=== PATIENT | female | born 1955 | race Caucasian/White ===

== ENCOUNTER 2016-08-18 07:02 | Inpatient (IN) | payer OTHER ==
[~2016-08-18] VITALS: Ht 172.7 cm; Wt 74.6 kg
[2016-08-18 07:04] VITALS: BP 133/84; PULSE 100; RESP 20; TEMP 97.9; O2SAT 97
[2016-08-18 08:00] VITALS: BP 143/78; PULSE 102; RESP 16; O2SAT 99
--- NOTE | 2016-08-18 08:06 | PD ---
HPI Chief Complaint: Abdominal Pain Time Seen by Provider: 07:58 Travel History International Travel<30 days: No Contact w/Intl Traveler<30days: No Traveled to known affect area: No History of Present Illness HPI 61yo F with PMH of depression presents to the ED with c/o RLQ abdominal pain since last night. States it is achy and then sharp when she moves. Pain is intermittent, radiating. Associated with nausea and NBNB vomiting. +Hematuria today. Has history of kidney infections before. Denies any fever, chest pain, sob, dysuria, vaginal bleeding or discharge. PFSH Past Medical History Hx Anticoagulant Therapy: Yes (asa) Cardiovascular Problems: Yes (htn) Cerebrovascular Accident: Yes Tetanus Vaccination: > 5 Years Menopausal: Yes : 9 Para: 7 Past Surgical History Other Surgery: Yes (COSMETIC) Social History Alcohol Use: Yes Tobacco Use: Yes (VAPOR) Substance Use: No Allergies-Medications (Allergen,Severity, Reaction): Coded Allergies: No Known Allergies (Unverified , 08/18/16) Reported Meds & Prescriptions Reported Meds & Active Scripts Active Reported Aspirin Low Dose (Aspirin) 81 Mg Chew 81 Mg CHEW DAILY Vitamin E Water Soluble (Vitamin E) 1,000 Unit Cap 1,000 Units PO DAILY Paxil (Paroxetine HCl) 10 Mg Tab 20 Mg PO DAILY Review of Systems Except as stated in HPI: all other systems reviewed are Neg Physical Exam Narrative GENERAL: 61yo F not in distress. SKIN: Focused skin assessment warm/dry. HEAD: Atraumatic. Normocephalic. EYES: Pupils equal and round. No scleral icterus. No injection or drainage. ENT: No nasal bleeding or discharge. Mucous membranes pink and moist. NECK: Trachea midline. No JVD. CARDIOVASCULAR: Regular rate and rhythm. No murmur appreciated. RESPIRATORY: No accessory muscle use. Clear to auscultation. Breath sounds equal bilaterally. GASTROINTESTINAL: Abdomen soft, +TTP RLQ > RUQ. Positive rovsings sign. Nondistended. BACK: No CVA tenderness bilaterally. MUSCULOSKELETAL: No obvious deformities. No clubbing. No cyanosis. No edema. NEUROLOGICAL: Awake and alert. No obvious cranial nerve deficits. Motor grossly within normal limits. Normal speech. PSYCHIATRIC: Appropriate mood and affect; insight and judgment normal. Data Data Last Documented VS Vital Signs Date Time Temp Pulse Resp B/P Pulse Ox O2 Delivery O2 Flow Rate FiO2 08/18/16 12:00 88 16 112/73 98 Room Air 08/18/16 07:04 97.9 Orders Complete Blood Count With Diff (08/18/16 07:28) Comprehensive Metabolic Panel (08/18/16 07:28) Urinalysis - C+S If Indicated (08/18/16 07:28) Lipase (08/18/16 07:28) Ct Abd/Pel W Iv Contrast(Rout) (08/18/16 ) Iohexol 350 Inj (Omnipaque 350 Inj) (08/18/16 09:56) Piperacil-Tazo 3.375 Gm Premix (Zosyn 3. (08/18/16 11:15) Morphine Inj (Morphine Inj) (08/18/16 11:15) Ondansetron Inj (Zofran Inj) (08/18/16 11:15) Consult General Surgery (08/18/16 ) NPO (08/18/16 11:11) Urine Culture (08/18/16 11:54) (Hub Use Only)Inp Phy Cons/Ref (08/18/16 ) Admit Order (Ed Use Only) (08/18/16 13:56) Labs Laboratory Tests Test 08/18/16 08/18/16 07:45 11:54 Sodium Level 138 MEQ/L Potassium Level 3.7 MEQ/L Chloride Level 102 MEQ/L Carbon Dioxide Level 26.6 MEQ/L Anion Gap 9 MEQ/L Blood Urea Nitrogen 11 MG/DL Creatinine 1.13 MG/DL Estimat Glomerular Filtration 49 ML/MIN Rate Random Glucose 114 MG/DL Calcium Level 9.9 MG/DL Total Bilirubin 0.7 MG/DL Aspartate Amino Transf 27 U/L (AST/SGOT) Alanine Aminotransferase 34 U/L (ALT/SGPT) Alkaline Phosphatase 131 U/L Total Protein 8.4 GM/DL Albumin 4.1 GM/DL Lipase 88 U/L White Blood Count 16.0 TH/MM3 Red Blood Count 4.35 MIL/MM3 Hemoglobin 13.7 GM/DL Hematocrit 40.2 % Mean Corpuscular Volume 92.4 FL Mean Corpuscular Hemoglobin 31.4 PG Mean Corpuscular Hemoglobin 34.0 % Concent Red Cell Distribution Width 13.4 % Platelet Count 205 TH/MM3 Mean Platelet Volume 10.5 FL Neutrophils (%) (Auto) 82.0 % Lymphocytes (%) (Auto) 13.1 % Monocytes (%) (Auto) 4.7 % Eosinophils (%) (Auto) 0.0 % Basophils (%) (Auto) 0.2 % Neutrophils # (Auto) 13.1 TH/MM3 Lymphocytes # (Auto) 2.1 TH/MM3 Monocytes # (Auto) 0.8 TH/MM3 Eosinophils # (Auto) 0.0 TH/MM3 Basophils # (Auto) 0.0 TH/MM3 CBC Comment DIFF FINAL Differential Comment Urine Color YELLOW Urine Turbidity HAZY Urine pH 6.0 Urine Specific [place] 1.041 Urine Protein 30 mg/dL Urine Glucose (UA) NEG mg/dL Urine Ketones NEG mg/dL Urine Occult Blood SMALL Urine Nitrite POS Urine Bilirubin NEG Urine Urobilinogen LESS THAN 2.0 MG/DL Urine Leukocyte Esterase LARGE Urine RBC 5 /hpf Urine WBC 153 /hpf Urine Squamous Epithelial <1 /hpf Cells Urine Bacteria MANY /hpf Urine Mucus MANY /lpf Microscopic Urinalysis Comment CULTURE INDICATED MDM Medical Decision Making Medical Screen Exam Complete: Yes Emergency Medical Condition: Yes Differential Diagnosis Acute appendicitis vs. cholecystitis vs. colitis vs. nephrolithiasis vs. pyelonephritis Narrative Course 61yo F with RLQ pain and nausea and vomiting. Labs reviewed, leukocytosis at 16 ,000. Creatinine 1.13. CT a/p showed acute appendicitis. 5mm calcified left renal stone lower pole not causing obstruction. Discussed with Dr. Dodd at 11 :08am and he will come see the patient in the ED. Will give zosyn and keep NPO. Pt also given morphine and zofran. Reevaluated at bedside and felt better. Pt was evaluated by Dr. Dodd in the ED and accepted to his service. Diagnosis Primary Impression: Acute appendicitis Qualified Code: K35.80 - Acute appendicitis, unspecified acute appendicitis type Admitting Information Admitting Physician Requests: Admit Elinor Giron Aug 18, 2016 08:06
[2016-08-18] MEDS ORDERED: PAXI10TA2 PO (08:07)
[2016-08-18] MEDS ORDERED: VITA-98 PO (08:07)
[2016-08-18 08:08] LABS: AUTOMATED NEUTROPHIL # 13.1 TH/MM3 (1.8-7.7); BASOPHIL % 0.2 % (0.0-2.0); HEMATOCRIT 40.2 % (35.0-46.0); HEMO FLAGS DIFF FINAL; LYMPH % 13.1 % (9.0-44.0); LYMPHOCYTE # 2.1 TH/MM3 (1.0-4.8); MEAN CELL VOLUME 92.4 FL (80.0-100.0); MEAN CORPUSCULAR HEMOGLOBIN 31.4 PG (27.0-34.0); MONO % 4.7 % (0.0-8.0); PLATELET COUNT 205 TH/MM3 (150-450); RED BLOOD COUNT 4.35 MIL/MM3 (4.00-5.30); RED CELL DISTRIBUTION WIDTH 13.4 % (11.6-17.2)
[2016-08-18] MEDS ORDERED: ASPI81CH37 CHEW (08:08)
[2016-08-18 08:28] LABS: ANION GAP 9 MEQ/L (5-15); AST (GOT) 27 U/L (15-37); BICARBONATE 26.6 MEQ/L (21.0-32.0); BLOOD UREA NITROGEN 11 MG/DL (7-18); CHLORIDE 102 MEQ/L (98-107); GLOMERULAR FILTRATION RATE 49 ML/MIN (>89); POTASSIUM 3.7 MEQ/L (3.5-5.1); SODIUM (NA) 138 MEQ/L (136-145)
[2016-08-18 08:29] LABS: ALT (GPT) 34 U/L (10-53)
[2016-08-18 08:32] LABS: ALKALINE PHOSPHATASE 131 U/L (45-117); TOTAL BILIRUBIN ADULT 0.7 MG/DL (0.2-1.0)
[2016-08-18] MEDS ORDERED: IOHEXOL 350 MG/ML 10 ML VIAL (for RAD DIAG) IV ONE (09:56)
--- NOTE | 2016-08-18 10:13 | RADRPT ---
EXAM DATE/TIME: 08/18/2016 09:43 [facility] COMPARISON: No previous studies available for comparison. INDICATIONS : Right lower quadrant pain, blood in urine. IV CONTRAST: 73 cc Omnipaque 350 (iohexol) IV ORAL CONTRAST: No oral contrast ingested. RADIATION DOSE: 9.79 CTDIvol (mGy) MEDICAL HISTORY : Hypertension. SURGICAL HISTORY : None. ENCOUNTER: Initial ACUITY: 1 day PAIN SCALE: 3/10 LOCATION: Right lower quadrant TECHNIQUE: Volumetric scanning of the abdomen and pelvis was performed. Using automated exposure control and ad justment of the mA and/or kV according to patient size, radiation dose was kept as low as reasonably achievable to obtain optimal diagnostic quality images. DICOM format image data is available electro nically for review and comparison. FINDINGS: LOWER LUNGS: Mild bibasilar atelectasis. Calcified granuloma right middle lobe. LIVER: Homogeneous density without lesion. There is no dilation of the biliary tree. Tiny calcified gallsto kristin. SPLEEN: Normal size without lesion. PANCREAS: Within normal limits. KIDNEYS: Normal in size and shape. There is no mass or hydronephrosis. 5 mm nonobstructing stone lower pole l eft kidney. ADRENAL GLANDS: Within normal limits. VASCULAR: There is no aortic aneurysm. Atherosclerotic changes. BOWEL/MESENTERY: Bowel gas pattern is within normal limits. The appendix is dilated at 1 cm. There is surrounding infl ammatory changes in the mesenteric fat characteristic for acute appendicitis. No free fluid or locula abiel fluid collections are seen to indicate an abscess. There is no evidence of free air. ABDOMINAL WALL: Within normal limits. RETROPERITONEUM: There is no lymphadenopathy. BLADDER: No wall thickening or mass. REPRODUCTIVE: Within normal limits. INGUINAL: There is no lymphadenopathy or hernia. MUSCULOSKELETAL: Within normal limits for patient age. CONCLUSION: 1. Acute appendicitis. 2. 5 mm calcified left renal stone lower pole not causing obstruction. 3. Evidence of previous granulomatous disease. 4. Mild bibasilar atelectasis. Freddie House MD on August 18, 2016 at 10:07 Board Certified Radiologist. This report was verified electronically.
[2016-08-18] MEDS ORDERED: MORPHINE SULFATE 4 MG/ML INJ IV PUSH ONE (11:15)
[2016-08-18] MEDS ORDERED: PIPERACIL-TAZO 3.375 GM PREMIX 50 ML IV ONE ×2 (11:15→21:15)
[2016-08-18] MEDS ORDERED: ONDANSETRON HCL 4 MG/2 ML VIAL IV PUSH ONE ×2 (11:15→12:22)
[2016-08-18 12:00] VITALS: BP 112/73; PULSE 88; RESP 16; O2SAT 98
[2016-08-18] MEDS ORDERED: PROPOFOL 200 MG/20 ML AMP IV ONE (12:21)
[2016-08-18] MEDS ORDERED: ePHEDrine/NS 25 MG/5 ML SYR IV ONE (12:21)
[2016-08-18] MEDS ORDERED: PHENYLEPH/NS 1000 MCG/10 ML SYR IV ONE (12:21)
[2016-08-18] MEDS ORDERED: LACTATED RINGER'S 1000 ML INJ 1,000 ML IV ONE (12:22)
[2016-08-18 12:26] LABS: BACTERIA, URINE MANY /hpf; BLOOD, URINE SMALL (NEG); COMMENT (UR) CULTURE INDICATED; CULTURE IF INDICATED CULTURE INDICATED; GLUCOSE,URINE NEG (NEG); KETONE, URINE NEG (NEG); MUCUS URINE MANY /lpf (OCC); SQUAMOUS EPITHELIAL CELL URINE <1 /hpf (0-5); URINE COLOR YELLOW (YELLW/STRAW)
[2016-08-18 12:28] LABS: NITRITE,URINE POS (NEG)
[2016-08-18 13:58] VITALS: BP 108/70; PULSE 84; RESP 16; O2SAT 96
[2016-08-18 16:00] VITALS: BP 110/70; PULSE 89; RESP 17; TEMP 98.3; O2SAT 96
[2016-08-18] MEDS ORDERED: MORPHINE SULFATE 4 MG/ML INJ IV PRN ×3 (16:15→22:15)
[2016-08-18] MEDS ORDERED: ONDANSETRON HCL 4 MG/2 ML VIAL IV PUSH PRN (16:15)
[2016-08-18] MEDS: LACTATED RINGER'S 1000 ML INJ 1,000 ML IV SCH (16:41)
[2016-08-18] MEDS ORDERED: BUPIVACAINE/EPINEPHRINE 0.5% 50 ML VIAL ONE (18:06)
[2016-08-18 20:00] VITALS: BP 120/72; PULSE 92; RESP 20; TEMP 99.3; O2SAT 96
[2016-08-18] MEDS ORDERED: LACTATED RINGER'S 1000 ML IV PRN (20:00)
[2016-08-18] MEDS ORDERED: METOPROLOL TARTRATE 25 MG TAB PO PRN (20:00)
[2016-08-18] MEDS ORDERED: CHLORHEXIDINE GLUCONATE 2 % 1 PACK (2 CLOTHS) TOPICAL PRN (20:00)
[2016-08-18] MEDS ORDERED: INSULIN HUMAN REGULAR 1,000 UNITS/10 ML VIAL SQ PRN (20:00)
[2016-08-18] MEDS ORDERED: POVIDONE IODINE 5% (ANTISEPSIS KIT) 4 APPLICATIONS EACH NARE PRN (20:00)
[2016-08-18] MEDS ORDERED: SODIUM CHLORID 0.9% 500 ML IV PRN (20:00)
[2016-08-18] MEDS ORDERED: SUGAMMADEX SODIUM 200 MG/2 ML VIAL IV PUSH ONE ×2 (20:18)
[2016-08-18] MEDS ORDERED: ACETAMINOPHEN 1000 MG/100 ML VIAL IV ONE (20:19)
[2016-08-18] MEDS ORDERED: BUPIVACAINE/EPINEPHRINE 0.5% PF 30 ML VIAL INFIL ONE (20:48)
--- NOTE | 2016-08-18 21:19 | HHI.HP ---
General Surgery H&P Chief complaint: Abdominal pain History of present illness: Patient is a 61-year-old woman who began having abdominal pain approximately 24-36 hours ago. The pain began in her midabdomen and was crampy in nature. It was associated with significant nausea and several episodes of emesis. Gradually the pain migrated to the right lower quadrant where remained and became more severe. She subsequently presented to the emergency department with those complaints. She's had no nausea vomiting since coming to the emergency department. Past medical history: The patient had a cerebral hemorrhage several years ago and was in a coma for over a month. She had a PEG tube at that time. She suffers little in the way of sequela. Past surgical history: Other than the PEG to the patient's had a diagnostic laparoscopy as well as cosmetic surgery. Current medications include: Aspirin Low Dose (Aspirin) 81 Mg Chew 81 Mg CHEW DAILY Vitamin E Water Soluble (Vitamin E) 1,000 Unit Cap 1,000 Units PO DAILY Paxil (Paroxetine HCl) 10 Mg Tab 20 Mg PO DAILY She has no known drug allergies. Family history/'s social history/review of systems are negative except as in history of present illness. Vital Signs Date Time Temp Pulse Resp B/P Pulse Ox O2 Delivery O2 Flow Rate FiO2 08/18/16 20:00 99.3 92 20 120/72 96 08/18/16 16:00 98.3 89 17 110/70 96 08/18/16 13:58 84 16 108/70 96 Room Air 08/18/16 12:00 88 16 112/73 98 Room Air 08/18/16 08:00 102 16 143/78 99 Room Air 08/18/16 07:04 97.9 100 20 133/84 97 Room Air Physical exam: HEENT: Unremarkable with no scleral icterus or lesions NECK: Supple with no adenopathy or thyromegaly. CHEST: Lungs are clear to percussion auscultation and the chest is symmetrical HEART: Regular rate and rhythm with no murmurs appreciated ABDOMEN: The abdomen is exquisitely tender in the right lower quadrant with a positive Rovsing sign as well. She has significant voluntary guarding as well as involuntary guarding to deep palpation and percussive rebound, all located in the right lower quadrant. EXTREMITIES: No cyanosis, clubbing, or edema NEURO: Grossly intact Laboratory Tests Test 08/18/16 08/18/16 07:45 11:54 White Blood Count 16.0 TH/MM3 Red Blood Count 4.35 MIL/MM3 Hemoglobin 13.7 GM/DL Hematocrit 40.2 % Mean Corpuscular Volume 92.4 FL Mean Corpuscular Hemoglobin 31.4 PG Mean Corpuscular Hemoglobin 34.0 % Concent Red Cell Distribution Width 13.4 % Platelet Count 205 TH/MM3 Mean Platelet Volume 10.5 FL Neutrophils (%) (Auto) 82.0 % Lymphocytes (%) (Auto) 13.1 % Monocytes (%) (Auto) 4.7 % Eosinophils (%) (Auto) 0.0 % Basophils (%) (Auto) 0.2 % Neutrophils # (Auto) 13.1 TH/MM3 Lymphocytes # (Auto) 2.1 TH/MM3 Monocytes # (Auto) 0.8 TH/MM3 Eosinophils # (Auto) 0.0 TH/MM3 Basophils # (Auto) 0.0 TH/MM3 CBC Comment DIFF FINAL Differential Comment Sodium Level 138 MEQ/L Potassium Level 3.7 MEQ/L Chloride Level 102 MEQ/L Carbon Dioxide Level 26.6 MEQ/L Anion Gap 9 MEQ/L Blood Urea Nitrogen 11 MG/DL Creatinine 1.13 MG/DL Estimat Glomerular Filtration 49 ML/MIN Rate Random Glucose 114 MG/DL Calcium Level 9.9 MG/DL Total Bilirubin 0.7 MG/DL Aspartate Amino Transf 27 U/L (AST/SGOT) Alanine Aminotransferase 34 U/L (ALT/SGPT) Alkaline Phosphatase 131 U/L Total Protein 8.4 GM/DL Albumin 4.1 GM/DL Lipase 88 U/L Urine Color YELLOW Urine Turbidity HAZY Urine pH 6.0 Urine Specific [place] 1.041 Urine Protein 30 mg/dL Urine Glucose (UA) NEG mg/dL Urine Ketones NEG mg/dL Urine Occult Blood SMALL Urine Nitrite POS Urine Bilirubin NEG Urine Urobilinogen LESS THAN 2.0 MG/DL Urine Leukocyte Esterase LARGE Urine RBC 5 /hpf Urine WBC 153 /hpf Urine Squamous Epithelial <1 /hpf Cells Urine Bacteria MANY /hpf Urine Mucus MANY /lpf Microscopic Urinalysis Comment CULTURE INDICATED Last 24 hours Impressions Abdomen/Pelvis CT 08/18/16 0000 Signed Impressions: Service Date/Time: August 09:43 - CONCLUSION: 1. Acute appendicitis. 2. 5 mm calcified left renal stone lower pole not causing obstruction. 3. Evidence of previous granulomatous disease. 4. Mild bibasilar atelectasis. Freddie House MD IMPRESSION: Acute appendicitis PLAN: The patient was taken to the operating room as soon as an OR is available for a laparoscopic appendectomy. I explained the procedure to him including the risks of bleeding, infection, visceral injury, need for open operation, need for reoperation. She understands and is agreeable to the procedure. Lloyd Dodd MD Aug 18, 2016 21:19
--- NOTE | 2016-08-18 21:24 | PD.OP ---
cc: Lloyd Dodd MD Operative Report Date of Surgery: Aug 18, 2016 Preoperative Diagnosis: Acute appendicitis Postoperative Diagnosis: Acute appendicitis Procedure: Laparoscopic appendectomy Anesthesia: Gen. endotracheal Surgeon: Lloyd Dodd Disc Inspector(s): None Operation and Findings: Operative findings: The patient was found to have a grossly distended appendix consistent with the CT scan. It had mild amount of exudate on it but there was no free fluid or evidence of perforation. No other abnormalities were noted. Operative procedure: The patient was brought to the operating room and after satisfactory general endotracheal anesthesia was obtained, the abdomen was prepped and draped in usual sterile fashion. 0.5% Marcaine with epinephrine was used to infiltrate skin for local anesthesia. A small incision was made just below the umbilicus and a 5 mm trocar was inserted into the peritoneal cavity under direct visualization. The abdomen was then distended to 15 mmHg using carbon dioxide. The camera was reinserted and visceral injury inspected for, with none being identified. Under direct visualization a 12 port was placed in suprapubic region and another 5 port was placed in the mid abdomen between the 2 other trochars. The cecum was rotated medially and the base of the appendix identified. The tibial appendix was along the lateral aspect of the descending colon. The appendix was gradually dissected free from the surrounding eschar after which was grasped in its midportion with an Endo [place] clamp. It was then dissected free further by taking down the mesoappendix with the Harmonic scalpel. The dissection was carried down to the base where it was elevated anteriorly and a 35 mm white load stapler was placed across the base in appendix, secured, and fired amputating the appendix. The appendix was placed within an Endo Catch bag and brought easily through the lower incision and sent for permanent pathology. The area of dissection was checked for hemostasis which was seen to be satisfactory. The appendiceal stump was checked and found to be intact with no evidence of disruption. The carbon dioxide was then vented as completely as possible the atmosphere after which the ports were removed and the skin was closed with interrupted 4-0 Monocryl subcuticular stitches. Steri-Strips were applied and the patient was then awakened and taken from the operating room, in satisfactory condition, having tolerated the procedure from. Estimated blood loss was less than 10 mL' s. Aspirin, sponge, needle counts were reported as being correct 2 at the end of the procedure. Lloyd Dodd MD Aug 18, 2016 21:24
[2016-08-18] MEDS ORDERED: KETOROLAC TROMETHAMINE 30 MG/ML (IVP) VIAL IV PUSH ONE ×2 (21:30→22:15)
[2016-08-18] MEDS ORDERED: DO NOT ADM ANY ANTICOAGULANT DRUGS PRN (21:30)
[2016-08-18] MEDS ORDERED: MIDAZOLAM HCL 2 MG/2 ML VIAL ONE (21:36)
[2016-08-18] MEDS ORDERED: fentaNYL CITRATE 250 MCG/5 ML AMP ONE (21:36)
[2016-08-18] MEDS ORDERED: oxyCODONE/ACETAMINOPHEN 5 MG/325 MG TAB PO PRN ×2 (22:15)
[2016-08-18] MEDS ORDERED: SODIUM CHLORIDE 0.9% FLUSH 10 ML FLUSH IV FLUSH PRN (22:15)
[2016-08-18] MEDS ORDERED: ONDANSETRON HCL 4 MG/2 ML VIAL IV PRN (22:15)
[2016-08-19] VITALS: BP 107/59; PULSE 87; RESP 20; TEMP 97.1; O2SAT 92
[2016-08-19] MEDS: LACTATED RINGER'S 1000 ML INJ 1,000 ML IV SCH ×2 (00:15→08:15)
[2016-08-19 04:00] VITALS: BP 118/61; PULSE 76; RESP 18; TEMP 97.9; O2SAT 93
[2016-08-19 08:00] VITALS: BP 101/58; PULSE 74; RESP 14; TEMP 96.9; O2SAT 94
[2016-08-19] MEDS ORDERED: SODIUM CHLORIDE 0.9% FLUSH 10 ML FLUSH IV FLUSH SCH (09:00)
[2016-08-19 12:00] VITALS: BP 102/60; PULSE 109; RESP 16; TEMP 97.8; O2SAT 93
--- NOTE | 2016-08-19 13:10 | HHI.PR ---
Subjective Subjective Notes The patient feels much better today with greatly diminished pain. She still has occasional tenderness the right lower quadrant which is episodic. Overall she has had no nausea or vomiting or fever. She is ready to be discharged. Objective Vitals/I&O Vital Signs Date Time Temp Pulse Resp B/P Pulse Ox O2 Delivery O2 Flow Rate FiO2 08/19/16 08:00 96.9 74 14 101/58 94 08/18/16 22:30 Room Air 08/18/16 22:00 3 Labs Date/Time Procedure Status Source Growth 08/18/16 11:54 Urine Culture - Preliminary Resulted Urine Clean Catch Gram Negative Marco Abdomen: Non-distended, Non-tender, BS normal Extremities: No edema A/P Assessment and Plan Impression: Status post laparoscopic appendectomy. She is doing well with no problems postoperatively. Plan: Patient be discharged today and I will see her back in the office in 2 weeks for recheck. I have given her permission to travel on Monday but have also asked her to call the office should there be any problems. Lloyd Dodd MD Aug 19, 2016 13:10
--- NOTE | 2016-08-19 13:17 | PD.OP ---
cc: Lloyd Dodd MD Operative Report Date of Surgery: Aug 19, 2016 Preoperative Diagnosis: Malignant melanoma left upper extremity Postoperative Diagnosis: Malignant melanoma left upper extremity Procedure: 1. Wide excision melanoma left upper extremity with primary closure. 2. Left axillary dissection with sentinel lymph node biopsy Anesthesia: Gen. endotracheal Surgeon: Lloyd Dodd National Account Manager(s): JOSE Lopez Operation and Findings: Operative findings and procedure: The patient was brought to the operating room after having undergone nuclear injection for sentinel node identification area and after lymphoscintigraphy identified the node in question she was brought to the operating room and placed under satisfactory general endotracheal anesthesia. The left axilla and arm were prepped and draped sterilely as well as the anterior portion of the left thigh. 0.5% Marcaine with epinephrine was used to infiltrate the skin for local anesthesia. An infra-axillary incision was made and carried out sharply through subcutaneous use tissue with cautery being used for hemostasis. Incision was deepened into the axilla proper by incising the clavipectoral fascia. With that palpable lymph node was identified and was seen to contain a large amount of radioactivity. The x-ray contents were then more excessively palpated and several nodes were identified. The x-ray contents were grasped with an [place] clamp and using the harmonic scalpel the axilla was cleaned of any palpable adenopathy. The dissection was carried superiorly to the axillary vein which was identified and preserved. The dissection was also taken medially to the chest wall and laterally to the anterior border latissimus dorsi. After cleaning out the axillar contents of all palpable lymph nodes along with the surrounding tissue the sentinel node was identified as the one with the highest radioactivity and was marked with a 2 -0 silk suture. The area was made hemostatic after which the subcutaneous cutaneous tissue was closed with interrupted 3-0 Vicryl suture and the skin closed with interrupted 4 -0 PDS subcutaneous stitches. The attention was then turned to the arm. It was decided to attempt a wide excision with primary closure. 2 cm margin was marked around the previous biopsy site the lateral aspect of the left upper extremity. 0.5% Marcaine with epinephrine was also infiltrated into the skin for local anesthesia. The elliptical skin incision was then made and carried out sharply through subcutaneous use tissue with cautery being used for hemostasis. The area of skin and subcutaneous cutaneous tissue was dissected free with the cautery and marked for future margins with silk sutures and sent for permanent pathology. Hemostasis was strictly assured after which further 0.5% Marcaine with epinephrine was infiltrated in the surrounding tissues and the subcutaneous tissues tissue was then extensively undermined.. Although the tissue was somewhat tight in the middle was decided to attempt a primary closure. Initial dermal sutures were placed using 0 Vicryl in several areas to bring the dermis into approximation. 2-0 Vicryl was then used for the remainder of the dermal sutures. Although there was slight amount of ischemic stressed to the surrounding tissues in the midportion incision was decided to complete the repair in this fashion without a skin graft. The skin was then stapled closed and a sterile dressing placed. [place] dressing was placed on the axillary incision after Steri-Strips were then applied. Patient was then awakened and taken from the operating room, in satisfactory condition, having tolerated the procedure without problem. Estimated blood loss was less than 20 mL's. The instrument, sponge, and needle counts were reported as being correct 2 at the end of the procedure. Lloyd Dodd MD Aug 19, 2016 13:17
--- NOTE | 2016-08-19 13:26 | EKG ---
Date Performed: 08/18/2016 Time Performed: 19:50:05 PTAGE: 61 years EKG: Sinus rhythm NORMAL ECG NO PREVIOUS TRACING DOCTOR: Soham Boykin Interpretating Date/Time 08/19/2016 13:23:07
[2016-08-19 16:00] VITALS: BP 96/55; PULSE 112; RESP 15; TEMP 98.2; O2SAT 92
== END 2016-08-19 16:14 | disposition home or self-care (01) | DRG 343 ==
LOC: NEPC 07:02 → NEDA 13:57 → N07A 14:48
PROVIDERS: ADMIT Surgery; ATTEND Surgery
PROC: 0DTJ4ZZ Resection of Appendix, Percutaneous Endoscopic Approach (ICD-10-PCS; principal; 2016-08-18 20:19)
DX: K35.80 Unspecified acute appendicitis (principal); C43.62 Malignant melanoma of left upper limb, including shoulder; I10 Essential (primary) hypertension; Z79.82 Long term (current) use of aspirin; F17.290 Nicotine dependence, other tobacco product, uncomplicated; N20.0 Calculus of kidney
CPT/HCPCS: 74177; 80053; 81001; 83690; 85025; 87077; 87086; 87186; 88304; 93005; 96365; 96375; J0131; J2250; J2270; J2370; J2405; J2543; J3010; J7120; Q9967